=== PATIENT | male | born 1960 | race American Indian/Alaskan Native ===

== ENCOUNTER 2018-01-11 10:59 | Day surgery (SDC) | payer MEDICAID ==
[2018-01-04 15:51] VITALS: BMI 15.2
--- NOTE | 2018-01-11 13:18 | CP.SDSHP ---
Same Day Surgery H & P - History Proposed Procedure: egd eus fnb Pre-Op Diagnosis: abdo pain, pancreatitis, suspected panc mass - Allergies Allergies: Allergies No Known Allergies Allergy (Verified 01/11/18 11:58) - Physical Exam General Appearance: nl Vital Signs: Vital Signs 01/11/18 11:10 Temperature 97 F L Pulse Rate 78 Respiratory 19 Rate Blood Pressure 121/90 O2 Sat by Pulse 98 Oximetry Mental Status: Alert & Oriented x3 Neuro: WNL Heart: WNL Lungs: WNL GI: WNL - {Optional Preform as Required} Abdomen: WNL - Impression Impression: suspected panc mass. egd eus Pt. Evaluated Today:Candidate for Anesthesia & Procedure: Yes Short Stay Discharge - Short Stay Discharge Admitting Diagnosis/Reason for Visit: PANCREATIC MASS Disposition: HOME/ ROUTINE Referrals: Parker Graham MD [Primary Care Provider] -
[2018-01-11] MEDS ORDERED: Propofol 10 mg/ml Inj (20 ML) ONE (14:19)
[2018-01-11] MEDS ORDERED: Midazolam 2 MG/2 ML VIAL ONE (14:19)
[2018-01-11 15:43] LABS: BODY FLUID TYPE PERITONEAL/ASCITES
[2018-01-11 15:50] VITALS: TEMP 97.3
[2018-01-11 15:52] VITALS: RESP 18; O2SAT 100
[2018-01-11 16:25] LABS: BF GROSS APPEARANCE CLOUDY (CLEAR); BODY FLUID MONO/MACROPHAGE 5 % (0-0)
[2018-01-11 16:53] VITALS: BP 166/90; PULSE 58
== END 2018-01-11 16:50 | disposition home or self-care (01) ==
LOC: C.ENDO 10:59
PROVIDERS: ATTEND Internal Medicine
DX: K85.90 Acute pancreatitis without necrosis or infection, unspecified (principal); K86.9 Disease of pancreas, unspecified; R63.4 Abnormal weight loss; R18.8 Other ascites; K44.9 Diaphragmatic hernia without obstruction or gangrene; K29.70 Gastritis, unspecified, without bleeding
CPT/HCPCS: 43238; 43239; 82042; 84157; 88104; 88305; 88307; 88342; 89051; J2250; J2704; J3010; J7040

== ENCOUNTER 2018-01-28 10:38 | Day surgery (SDC) | payer OTHER ==
[2018-01-21 12:33] VITALS: BMI 15.0
[2018-01-28] MEDS ORDERED: Iohexol 240 (50 ml) ONE (11:09)
[2018-01-28] MEDS ORDERED: Indomethacin 50 MG Suppository PR ONE ×2 (11:09→12:33)
[2018-01-28] MEDS ORDERED: Glucagon Recombinant 1 mg Inj ONE (11:09)
[2018-01-28 11:27] LABS: HEMOGLOBIN 10.9 g/dL (12.0-18.0); MEAN CELL VOLUME 94.2 fL (80.0-94.0); MEAN CORPUSCULAR HEMOGLOBIN 32.4 pg (27.0-31.0); MEAN CORPUSCULAR HGB CONC 34.4 g/dL (33.0-37.0); MEAN PLATELET VOLUME 7.5 fL (7.2-11.7); RBC 3.35 Mil/uL (4.40-5.90); RED CELL DISTRIBUTION WIDTH 14.5 % (11.5-14.5)
[2018-01-28 11:42] LABS: ALBUMIN 3.9 g/dL (3.5-5.0); ALT/SGPT 49 U/L (21-72); AST/SGOT 35 U/L (17-59); BLOOD UREA NITROGEN 15 mg/dL (9-20); CALCIUM 9.2 mg/dl (8.6-10.4); GFR AFRICAN-AMERICAN > 60; GFR NON-AFRICAN AMERICAN > 60
[2018-01-28] MEDS ORDERED: Lactated Ringer's 1,000 ML IV ONE ×2 (13:28→15:36)
[2018-01-28] MEDS ORDERED: Propofol 10 mg/ml Inj (20 ML) ONE (13:33)
[2018-01-28] MEDS ORDERED: Midazolam 2 MG/2 ML VIAL ONE (13:33)
[2018-01-28] MEDS ORDERED: Succinylcholine Chloride 20 mg/ml Syr (5 ml) IV ONE (13:54)
[2018-01-28 17:14] VITALS: TEMP 97; O2SAT 99
[2018-01-28 17:39] VITALS: BP 166/80; PULSE 67; RESP 18
--- NOTE | 2018-01-31 10:39 | RAD ---
PROCEDURE: ERCP HISTORY: COMPARISON: None TECHNIQUE: Standard protocol for this study/examination. FINDINGS: Total fluoroscopic time (continuous mode) utilized during the procedure: 257.4 seconds. IMPRESSION: Submitted images from the current procedure: 5.0
== END 2018-01-28 17:35 | disposition home or self-care (01) ==
LOC: C.ENDO 10:38
PROVIDERS: ATTEND Internal Medicine
DX: K85.90 Acute pancreatitis without necrosis or infection, unspecified (principal); D52.9 Folate deficiency anemia, unspecified; K62.5 Hemorrhage of anus and rectum; R63.4 Abnormal weight loss; R97.8 Other abnormal tumor markers; R18.8 Other ascites
CPT/HCPCS: 36415; 48102; 77002; 80053; 85027; 88307; J0360; J1610; J2250; J2704; J3010; J7120; Q9966